=== PATIENT | male | born 1990 | race American Indian/Alaskan Native ===

== ENCOUNTER 2017-04-26 00:04 | Emergency (ER) | payer SELFPAY ==
[2017-04-26] MEDS ORDERED: TYLENOL PO ONE (00:38)
[2017-04-26] MEDS ORDERED: TYLENOL ONE (00:38)
[2017-04-26] MEDS ORDERED: MOTRIN PO ONE (04:43)
[2017-04-26] MEDS ORDERED: NORCO 5/325 PO ONE (04:51)
--- NOTE | 2017-04-26 04:57 | Emergency Department Report ---
ED Seizure HPI - General Chief Complaint: Seizure Stated Complaint: POSS SEIZURE Time Seen by Provider: 04/26/17 04:43 Source: patient, family Mode of arrival: Ambulatory Limitations: No Limitations - History of Present Illness Initial Comments: 26-year-old male with a past medical history seizures, ADHD, rhabdomyolysis, and Tourette's syndrome presents to the hospital with possible seizure. Patient is on Keppra, Vimpat, and Fymcompa for seizures and has a vagal nerve stimulator. Patient lives in [place] and his neurologist is in [place]. Patient has multiple types of seizures including absence seizure, clonic tonic, and grand mal. Patient was home alone and when his sister returned to the house patient was spaced out and confused. Patient would have intermittent staring episodes and was slow to respond to questions. She suspected that he had had a seizure and was post ictal. Patient also complained of right leg pain likely secondary to injury during seizure episode. Patient denies tongue laceration. No reports of urinary incontinence. Patient has been compliant with his medications. He complains of pain to his right foot, calf, and ankle that started after this episode tonight. Patient is back to his baseline mental status at this time. Pain to right leg is rated 7/10 in intensity, worse with palpation and movement. No complaints of headache or focal weakness. Patient states his last seizure was 2 weeks ago. His seizure frequency ranges from 1 seizure a day to 1 seizure a month. Patient be returning home on Wednesday (tomorrow) - Related Data Home Medications Medication Instructions Recorded Confirmed Last Taken Fycompa 12 mg QHS 04/26/17 04/26/17 04/25/17 Lacosamide [Vimpat] 100 mg BID 04/26/17 04/26/17 04/26/17 levETIRAcetam 500 mg TID 04/26/17 04/26/17 04/26/17 Previous Rx's Medication Instructions Recorded Last Taken Type HYDROcodone/APAP 5-325 [Denbo 1 each PO Q6HR PRN #14 tablet 04/26/17 Unknown Rx 5/325] Ibuprofen [Motrin] 800 mg PO Q8HR PRN #30 tablet 04/26/17 Unknown Rx Allergies Allergy/AdvReac Type Severity Reaction Status Date / Time No Known Allergies Allergy Verified 04/26/17 00:34 ED Review of Systems ROS: Stated complaint: POSS SEIZURE Other details as noted in HPI Comment: All other systems reviewed and negative Other: Constitutional: No fevers chills Eyes: No eye pain visual changes ENT: No ear pain or throat pain Neck: Denies pain Respiratory: Denies cough wheezing shortness of breath Cardiovascular: Denies chest pain, palpitations, syncope GI: Denies abdominal pain, nausea, vomiting, diarrhea : Denies dysuria Musculoskeletal: as per hpi Skin: Denies rash, lesions, erythema Neurologic: Denies headache, numbness, weakness Psychiatric: Denies suicidal ideation, hallucinations ED Past Medical Hx - Past Medical History Previous Medical History?: Yes Hx Seizures: Yes Additional medical history: ADHD. Rabhdo. turrette's syndrome - Surgical History Past Surgical History?: Yes Additional Surgical History: vagal nerve stimulator - Social History Smoking Status: Never Smoker Substance Use Type: None, Marijuana - Medications Home Medications: Home Medications Medication Instructions Recorded Confirmed Last Taken Type Fycompa 12 mg QHS 04/26/17 04/26/17 04/25/17 History HYDROcodone/APAP 5-325 [Denbo 1 each PO Q6HR PRN #14 tablet 04/26/17 Unknown Rx 5/325] Ibuprofen [Motrin] 800 mg PO Q8HR PRN #30 tablet 04/26/17 Unknown Rx Lacosamide [Vimpat] 100 mg BID 04/26/17 04/26/17 04/26/17 History levETIRAcetam 500 mg TID 04/26/17 04/26/17 04/26/17 History ED Physical Exam - General Limitations: No Limitations - Other Other exam information: General: No limitations, patient is alert in no acute distress Head exam: Atraumatic, normocephalic Eyes exam: Normal appearance, pupils equal reactive to light, extraocular movements intact ENT: Moist mucous membrane, normal oropharynx Neck exam: Normal inspection, full range of motion, no meningismus nontender Respiratory exam: Clear to auscultation bilateral, no wheezes, rales, crackles Cardiovascular: Normal rate and rhythm, normal heart sounds Abdomen: Soft, nondistended, and nontender, with normal bowel sounds, no rebound, or guarding Extremity: Full range of motion normal inspection no deformity, tenderness to lateral medial joint of knee and posterior knee. No tenderness at the patellar quadriceps tendon or isolated patellar tenderness, tenderness to right calf, and right ankle bilateral malleolus without deformity or significant edema Back: Normal Inspection, full range of motion, no tenderness Neurologic: Alert, oriented x3, cranial nerves intact, no motor or sensory deficit Psychiatric: normal affect, normal mood Skin: Warm, dry, intact ED Course Vital Signs 04/26/17 04/26/17 04/26/17 00:27 00:40 04:01 Temperature 99.1 F Pulse Rate 82 Respiratory 18 Rate Blood Pressure 135/65 107/56 Blood Pressure [Left] O2 Sat by Pulse 96 97 Oximetry 04/26/17 04/26/17 04/26/17 04:10 04:30 05:01 Temperature Pulse Rate 56 L Respiratory 18 Rate Blood Pressure 124/69 114/60 Blood Pressure 107/62 [Left] O2 Sat by Pulse 99 98 96 Oximetry - Reevaluation(s) Reevaluation #1: 04/26/17 05:05 Denbo and Motrin provided for pain ED Medical Decision Making - Radiology Data Radiology results: image reviewed interpreted by me: read by me: Right knee x-ray: No fracture, no acute injury Right ankle x-ray: No fracture - Medical Decision Making Patient discharged home with pain medication, Melquiades wrap bandage of right knee, and crutches. Outpatient follow-up will be encouraged with orthopedics and neurologist. Patient will be going back to [place] tomorrow - Differential Diagnosis breakthrough seizure, fracture, contusion, sprain Critical Care Time: No Critical care attestation.: If time is entered above; I have spent that time in minutes in the direct care of this critically ill patient, excluding procedure time. ED Disposition Clinical Impression: Breakthrough seizure, Right knee sprain, Right ankle sprain Disposition: TO HOME OR SELFCARE Is pt being admited?: No Does the pt Need Aspirin: No Condition: Stable Instructions: Ankle Sprain (ED), Knee Sprain (ED), Recurrent Seizures Adult (ED ) Additional Instructions: Follow up with your neurologist and a orthopedic doctor in [place]. Take medication as needed for pain. Return symptoms worsen. Prescriptions: HYDROcodone/APAP 5-325 [Denbo 5/325] 1 each PO Q6HR PRN #14 tablet PRN Reason: Pain Ibuprofen [Motrin] 800 mg PO Q8HR PRN #30 tablet PRN Reason: Pain Referrals: your, neurologist [Other] - 3-5 Days orthopedic, [Other] - 3-5 Days Time of Disposition: 05:47
[2017-04-26 05:29] VITALS: BP 114/60
--- NOTE | 2017-04-26 08:21 | XRay Report ---
RIGHT KNEE THREE VIEWS: 04/26/17 00:04:00 CLINICAL: Pain FINDINGS: Normal bones and joints. No fracture or dislocation. No joint effusion.Moderate diffuse soft tissue edema. IMPRESSION: Soft tissue edema but otherwise normal.
--- NOTE | 2017-04-26 08:21 | XRay Report ---
RIGHT ANKLE THREE VIEWS: 04/26/17 04:54 CLINICAL: Injury after seizure. FINDINGS: The ankle mortise is intact. No fracture or dislocation. Marked medial and lateral soft tissue edema . No soft tissue air or foreign body. IMPRESSION: Soft tissue injury and otherwise negative.
== END 2017-04-26 06:11 | disposition home or self-care (01) ==
LOC: ED 00:04
DX: G40.909 Epilepsy, unspecified, not intractable, without status epilepticus (principal); S83.91XA Sprain of unspecified site of right knee, initial encounter; W19.XXXA Unspecified fall, initial encounter; Y93.9 Activity, unspecified; Y92.9 Unspecified place or not applicable; Y99.9 Unspecified external cause status; F12.10 Cannabis abuse, uncomplicated